=== PATIENT | female | born 1980 | race Caucasian/White ===

== ENCOUNTER 2017-04-24 17:54 | Emergency (ER) | payer SELFPAY ==
--- NOTE | 2017-04-24 18:07 | ED Physician Documentation ---
General Adult - HISTORIAN Historian: patient - HPI Stated Complaint: fatigue, sore throat, cough, urinary urgency Chief Complaint: Fever Onset: days ago (4) Timing: still present Severity: moderate Modifying Factors: none Context: none Quality: none Location: none Further Comments: yes (she was with her family driving home and she was with mom who was sick) Last known Well Date: 04/21/17 Last Known Well Time: 09:00 Last known Well Code/Unknown Code: Unknown - ROS CONST: fever, sweating, weakness EYES/ENT: none CVS/RESP: cough. denies: chest pain GI/: abdominal pain, vomiting, nausea, diarrhea MS/SKIN/LYMPH: none NEURO/PSYCH: headache - PAST HX Past History: other (HTN ) Surgeries/Procedures: none Immunizations: referred to PCP - SOCIAL HX Smoking History: non-smoker Alcohol Use: none Drug Use: none - FAMILY HX Family History: Yes - REVIEWED ASSESSMENTS Nursing Assessment Reviewed: Yes Vitals Reviewed: Yes <Bonny Trivedi - Last Filed: 04/24/17 18:55> - VITAL SIGNS Vital Signs: Vital Signs Temp Pulse Resp BP Pulse Ox 99.1 F 122 H 18 112/68 99 04/24/17 17:58 04/24/17 17:58 04/24/17 17:58 04/24/17 17:58 04/24/17 17:58 <Henrique Rayo - Last Filed: 04/24/17 20:17> - PAST HX Allergies/Adverse Reactions: Allergies Allergy/AdvReac Type Severity Reaction Status Date / Time No Known Drug Allergies Allergy Verified 04/24/17 19:04 Home Medications: Ambulatory Orders Medication Instructions Recorded Lisinopril/Hctz 20-12.5 [Prinzide] 1 each PO DAILY u2 05/08/13 Esomeprazole Magnesium [Nexium] 20 mg PO DAILY 04/24/17 ED Results Lab/Radiology - Lab Results Lab Results: Lab Results 04/24/17 04/24/17 19:02 19:02 WBC 6.50 K/ul K/ul (4.00-12.00) RBC 5.07 M/ul M/ul (3.90-5.20) Hgb 14.0 g/dL g/dL (12.0-16.0) Hct 41.9 % % (34.5-46.5) MCV 82.7 fl fl (80.0-100.0) MCH 27.7 pg L pg (28.0-34.0) MCHC 33.6 g/dL g/dL (30.0-36.0) RDW 13.8 % % (11.3-14.3) Plt Count 224 K/mm3 K/mm3 (130-400) Neut % (Auto) 66.8 % % (39.0-79.0) Lymph % (Auto) 24.4 % % (16.0-50.0) [place] % (Auto) 5.0 % % (0.0-11.0) Eos % (Auto) 1.6 % % (0.0-6.8) Baso % (Auto) 0.8 (0.0-1.5) Neut # (Auto) 4.4 # k/uL # k/uL (1.4-7.7) Lymph # (Auto) 1.6 # k/uL # k/uL (0.6-4.0) [place] # (Auto) 0.3 # k/uL # k/uL (0.0-0.9) Eos # (Auto) 0.1 # k/uL # k/uL (0.0-0.6) Baso # (Auto) 0.0 # k/uL # k/uL (0.0-0.5) Reactive Lymphs % 1.3 % % (0.0-5.0) Reactive Lymphs # 0.1 # k/uL # k/uL (0.0-0.8) Sodium 133 mmol/L L mmol/L (137-145) Potassium 3.8 mmol/L mmol/L (3.5-5.1) Chloride 98 mmol/L mmol/L (98-107) Carbon Dioxide 24 mmol/L mmol/L (22-30) BUN 7 mg/dL mg/dL (7-17) Creatinine 0.70 mg/dL mg/dL (0.52-1.04) Estimated Creat Clear 190 Est GFR ( Amer) > 60 (60 - ) Est GFR (Non-Af Amer) > 60 (60 - ) Glucose 142 mg/dL H mg/dL (74-106) Calcium 8.9 mg/dL mg/dL (8.4-10.2) Total Bilirubin 0.6 mg/dL mg/dL (0.2-1.3) AST 141 U/L H U/L (15-46) ALT 161 U/L H U/L (13-69) Alkaline Phosphatase 51 U/L U/L (38-126) Total Protein 8.1 g/dL g/dL (6.3-8.2) Albumin 4.3 g/dL g/dL (3.5-5.0) - Orders Orders: ED Orders Category Date Time Status Place IV Lock 1T Care 04/24/17 18:42 Active CBC/PLATELET/DIFF Routine Lab 04/24/17 19:02 Completed CMP [CMP] Routine Lab 04/24/17 19:02 Completed INFLUENZA A&B Urgent Lab 04/24/17 18:14 Ordered Rapid Strep [GRP A STREP SCREEN] Urgent Lab 04/24/17 Ordered UA W MICRO [UA W/MICRO IF INDICATED] Routine Lab 04/24/17 18:14 Ordered 0.9 % Sodium Chloride [Normal Saline] 1,000 ml Med 04/24/17 18:42 Discontinued IV .STK-MED 0.9 % Sodium Chloride [Normal Saline] 1,000 ml Med 04/24/17 18:46 Discontinued IV Q1H Ondansetron HCl/Pf [Zofran 4 mg/2 ml] Med 04/24/17 18:42 Discontinued 4 mg .ROUTE .STK-MED ONE Ondansetron HCl/Pf [Zofran 4 mg/2 ml] Med 04/24/17 18:46 Discontinued 4 mg IVP NOW ONE <Henrique Rayo - Last Filed: 04/24/17 20:17> General Adult Physical Exam - PHYSICAL EXAM GENERAL APPEARANCE: no distress RESPIRATORY: no resp distress, chest non-tender, breath sounds normal CVS: reg rate & rhythm, heart sounds normal, equal pulses, no murmur ABDOMEN: soft, no organomegaly, normal bowel sounds, non-tender SKIN: warm/dry, normal color EXTREMITIES: non-tender NEURO: oriented X3, CN's nml as tested <Bonny Trivedi - Last Filed: 04/24/17 18:55> Discharge <Bonny Trivedi - Last Filed: 04/24/17 18:55> Comments: to pick cipro at pharmacy start srinath pt care was recieved by me at 1900. she was to be discharged at conclusion iv infiltration. pt appears to be doing well Decision to Admit: NO Decision Time: 20:17 <Henrique Rayo - Last Filed: 04/24/17 20:17> Clincal Impression: influenza B , URINARY TRACT INFECTION Referrals: Martha Magallanes MD [Primary Care Provider] - 2 Days Condition: Good Disposition: 01 HOME, SELF-CARE
[2017-04-24] MEDS: ONDANSETRON HCL/PF 4 MG/ 2ML VIAL IVP ONE (18:50)
[2017-04-24] MEDS: 0.9 % SODIUM CHLORIDE 1,000 ML IV ONE ×2 (18:50→19:02)
[2017-04-24] MEDS: ONDANSETRON HCL/PF 4 MG/ 2ML VIAL ONE (19:03)
[2017-04-24 19:08] LABS: BASOPHILS % 0.8 (0.0-1.5); EOSINOPHILS % 1.6 % (0.0-6.8); MEAN CORPUSCULAR HEMOGLOBIN 27.7 pg (28.0-34.0); MEAN CORPUSCULAR VOLUME 82.7 fl (80.0-100.0); NEUTROPHILS # 4.4 # k/uL (1.4-7.7)
[2017-04-24 19:19] LABS: eGFR (African) > 60; eGFR (Non-African) > 60
[2017-04-24 20:32] VITALS: BP 111/66
[2017-04-25 05:30] LABS: APPEARANCE,URINE CLEAR (CLEAR); COLOR,URINE ORANGE (YELLOW); OCCULT BLOOD,URINE NEGATIVE (NEGATIVE)
== END 2017-04-24 20:25 | disposition home or self-care (01) ==
LOC: ED 17:54
DX: J11.1 Influenza due to unidentified influenza virus with other respiratory manifestations (principal); N39.0 Urinary tract infection, site not specified
CPT/HCPCS: 80053; 81002; 85025; 87070; 87086; 87400; 87880; J2405; J7030; 87186; 96361; 96374; 99283; S1016

== ENCOUNTER 2017-07-19 22:25 | Emergency (ER) | payer OTHER ==
[2017-07-19] MEDS ORDERED: FLUCONAZOLE 150 MG TABLET PO ONE (23:18)
--- NOTE | 2017-07-19 23:24 | ED Physician Documentation ---
General Adult - HISTORIAN Historian: patient - HPI Stated Complaint: vaginal discharge Chief Complaint: General Adult Onset: days ago Timing: still present Severity: moderate Further Comments: yes - ROS CONST: no problems EYES/ENT: none CVS/RESP: none GI/: other (vag discharge) MS/SKIN/LYMPH: none - PAST HX Past History: other (GERD, HTN) Allergies/Adverse Reactions: Allergies Allergy/AdvReac Type Severity Reaction Status Date / Time No Known Drug Allergies Allergy Verified 07/19/17 22:42 Home Medications: Ambulatory Orders Medication Instructions Recorded Lisinopril/Hctz 20-12.5 [Prinzide] 1 each PO DAILY u2 05/08/13 Esomeprazole Magnesium [Nexium] 20 mg PO DAILY 04/24/17 Fluconazole [Diflucan] 150 mg PO QD #1 tablet 07/19/17 metroNIDAZOLE [Flagyl] 500 mg PO Q6H #14 tablet 07/19/17 - SOCIAL HX Smoking History: cigarettes - FAMILY HX Family History: No - VITAL SIGNS Vital Signs: Vital Signs Temp Pulse Resp BP Pulse Ox 98.3 F 78 16 111/66 99 07/19/17 22:25 07/19/17 22:25 07/19/17 22:25 04/24/17 20:25 07/19/17 22:25 - REVIEWED ASSESSMENTS Nursing Assessment Reviewed: Yes Vitals Reviewed: Yes Progress - Progress Progress: Vag exam: normal external appearance; white discharge Wet prep: few budding yeast; ? few clue cells; no trichomonas Diflucan 150 mg po in ER. Metronidazole 500 mg po in ER. Rx Diflucan 150 mg. Take one tablet in approx. 1 week, on 07-26-17. Rx Metronidazole 500 mg. Take one tablet by mouth every 12 hrs for 7 days. Maintain pH balance by eating yogurt or taking Acidophilus tablets, available over the counter. ED Results Lab/Radiology - Orders Orders: ED Orders Category Date Time Status CHLAMYDIA & GONORRHOEAE Stat Lab 07/19/17 23:15 Ordered HCG [URINE HCG] Stat Lab 07/19/17 Uncollected Fluconazole [Diflucan] Med 07/19/17 23:45 Ordered 150 mg PO DAILY Sodium Chloride For Inhalation [Dey] Med 07/19/17 22:46 Discontinued 3 ml IH .STK-MED ONE metroNIDAZOLE [Flagyl] Med 02/01/18 23:16 Once 500 mg PO NOW ONE General Adult Physical Exam - PHYSICAL EXAM GENERAL APPEARANCE: mild distress NECK: normal inspection, supple RESPIRATORY: no resp distress, chest non-tender CVS: reg rate & rhythm, heart sounds normal ABDOMEN: soft, no organomegaly, normal bowel sounds, non-tender SKIN: warm/dry, normal color EXTREMITIES: non-tender, normal range of motion, no evidence of injury NEURO: oriented X3, motor nml, sensation nml Discharge Clincal Impression: vaginitis Prescriptions: Fluconazole [Diflucan] 150 mg PO QD #1 tablet metroNIDAZOLE [Flagyl] 500 mg PO Q6H #14 tablet Referrals: Primary Doctor,No [Primary Care Provider] - Condition: Good Disposition: 01 HOME, SELF-CARE Decision to Admit: NO Decision Time: 23:29
[2017-07-19] MEDS: FLUCONAZOLE 150 MG TABLET PO SCH (23:25)
[2017-07-19] MEDS: SODIUM CHLORIDE 3 ML VIAL.NEB IH ONE (23:25)
[2017-07-19] MEDS: metroNIDAZOLE 500 MG TABLET PO ONE (23:25)
== END 2017-07-19 23:30 | disposition home or self-care (01) ==
LOC: ED 22:25
DX: N76.0 Acute vaginitis (principal)
CPT/HCPCS: 81025; 87801; 99282

== ENCOUNTER 2018-09-20 21:00 | Emergency (ER) | payer OTHER ==
[2018-09-20] MEDS: IPRATROPIUM/ALBUTEROL SULFATE 3 ML AMPUL.NEB NEB ONE (21:28)
--- NOTE | 2018-09-20 21:54 | ED Physician Documentation ---
Upper Respiratory Symptoms - HISTORIAN Historian: patient - HPI Stated Complaint: Shortness of breath Chief Complaint: Cough/ Upper Respiratory Onset: days ago (1) Context: denies: recent foreign travel Severity: mild Associated Symptoms: fever, chills, productive cough, shortness of breath. denies: sweating, earache, runny nose, sinus pain, sinus drainage, sore throat, hoarseness, allergy, chest pain, bloody cough, hurts to breathe Worsened by Deep Breath: No Further Comments: yes (She reports last week she was started on treatment for UTI. Yesterday she was started on a second antiboitc for a dental infection. She reports that then today she started to cough with fever. She has not tried any OTC meds . Denies a rash. Denies any sick contact.) - ROS CONST/EYES: denies: weakness, eye redness, eye itching CVS/RESP: shortness of breath. denies: chest pain, palpitations LYMPH: denies: leg swelling, rash GI/: none NEURO/PSYCH: denies: fainting, dizziness MS/SKIN: denies: joint pain, muscle aches, rash - PAST HX Lung Disease: none PE Risk Factors: none Immunizations: UTD Allergies/Adverse Reactions: Allergies Allergy/AdvReac Type Severity Reaction Status Date / Time No Known Drug Allergies Allergy Verified 09/20/18 21:16 Home Medications: Ambulatory Orders Medication Instructions Recorded Lisinopril/Hctz 20-12.5 [Prinzide] 1 each PO DAILY u2 05/08/13 Esomeprazole Magnesium [Nexium] 20 mg PO DAILY 04/24/17 Fluconazole [Diflucan] 150 mg PO QD #1 tablet 07/19/17 metroNIDAZOLE [Flagyl] 500 mg PO Q6H #14 tablet 07/19/17 - SOCIAL HX Smoking History: cigarettes Alcohol Use: none Drug Use: none - FAMILY HX Family History: none - VITAL SIGNS Vital Signs: Vital Signs Temp Pulse Resp BP Pulse Ox 100.4 F H 76 20 136/73 97 09/20/18 21:00 09/20/18 21:00 09/20/18 21:00 09/20/18 21:00 09/20/18 21:00 - REVIEWED ASSESSMENTS Nursing Assessment Reviewed: Yes Vitals Reviewed: Yes Progress - Progress Progress: 2145: improved inspiratory effort and decreased wheeze post neb. DG ED Results Lab/Radiology - Radiology Radiology Impressions: Chest two views History: 1 day of fever and cough Findings: The lungs are clear. There is no pleural effusion. Heart size and pulmonary vascularity are normal. Osseous structures are intact. Electronically signed on Sep 20, 2018 9:52:21 PM CDT by: Johan Garcia - Orders Orders: ED Orders Category Date Time Status CHEST 2VIEW [RAD] Stat Exams 09/20/18 Completed INFLUENZA A&B Stat Lab 09/20/18 21:12 Ordered Albuterol Sulfate [Ventolin Soln] Med 09/20/18 21:57 Discontinued 2.5 mg NEB NOW ONE Ibuprofen [Advil] Med 09/20/18 21:57 Discontinued 800 mg PO NOW ONE Ipratropium/Albuterol Sulfate [Duoneb] Med 09/20/18 21:12 Discontinued 3 ml NEB NOW ONE predniSONE [Deltasone] Med 09/20/18 21:57 Discontinued 20 mg PO NOW ONE Upper Respiratory Symptoms - EXAM General Appearance: no acute distress, alert EENT: eyes nml inspection, nml ENT inspection, PERRL, ear nml, pharynx nml, airway nml Neck: normal inspection Respiratory: no pain on inspiration, speaks full sentences, prolonged expirations, decreased air movement, wheezes (throughout - wheezing and inspiratory volume improved after neb ) Abdomen: non-tender CVS: reg rate & rhythm, heart sounds normal, equal pulses Skin: color nml, no rash, warm,dry Extremities: non-tender, no edema Neuro/Psych: oriented x3 Discharge Clincal Impression: Bronchitis Referrals: Primary Doctor,No [Primary Care Provider] - 2 Days Comments: 1. Azithromycin 250 mg daily x 4 (first dose in ER) 2. Prednisone 20 mg daily x4 3. ProAir 90 mcg - 2 puffs every 4 hours as needed for cough 4. Increase fluids 5. STOP SMOKING 6. Follow up with PCP Sunday 7. OTC meds as directed as needed for fever or pain 8. Return to ER for any increasing concerns Condition: Stable Disposition: 01 HOME, SELF-CARE Decision to Admit: NO Date of Decison to Admit: 09/20/18 Decision Time: 21:56
--- NOTE | 2018-09-20 21:55 | Diagnostic Imaging Report ---
HOLLIE IRWIN [facility] [address] [facility] [address], [place]. [address] Report Submission Date: Sep 20, 2018 9:52:21 PM CDT Patient Study Name: JUAN F SHARMA Date: Sep 20, 2018 9:29:09 PM CDT Modality Type: DX Gender: F Description: CHEST 2VIEW : 78 Institution: [facility] Physician: HOLLIE IRWIN Chest two views History: 1 day of fever and cough Findings: The lungs are clear. There is no pleural effusion. Heart size and pulmonary vascularity are normal. Osseous structures are intact. Electronically signed on Sep 20, 2018 9:52:21 PM CDT by: Johan BENITEZ
[2018-09-20] MEDS ORDERED: predniSONE 20 MG TABLET PO ONE (21:57)
[2018-09-20] MEDS ORDERED: ALBUTEROL SULFATE 2.5 MG/3 ML AMPUL.NEB NEB ONE (21:57)
[2018-09-20] MEDS ORDERED: IBUPROFEN 400 MG TABLET PO ONE (21:57)
[2018-09-20 22:40] VITALS: BP 115/70
== END 2018-09-20 22:09 | disposition home or self-care (01) ==
LOC: ED 21:00
DX: J40 Bronchitis, not specified as acute or chronic (principal); Z72.0 Tobacco use
CPT/HCPCS: 71046; 94640; 99283; 99284